=== PATIENT | female | born 1980 | race Caucasian/White ===

== ENCOUNTER 2017-07-13 18:12 | Observation (INO) | payer OTHER ==
[2017-07-13] MEDS ORDERED: MORPHINE SULFATE 10 MG/ML SYRINGE IM STA (18:30)
[2017-07-13] MEDS ORDERED: AMOXIC-POT CLAV 875MG STARTER 2 EACH TABLET PO STA (18:31)
--- NOTE | 2017-07-13 18:48 | ED ---
Animal Bite HPI - General Chief Complaint: Animal Bite Stated Complaint: Dog Bite Time Seen by Provider: 07/13/17 18:14 Source: patient, RN notes reviewed, old records reviewed Mode of arrival: EMS Limitations: no limitations - History of Present Illness Initial Comments: This is a 36-year-old female presents emergency Department chief complaint of a dog bite over her left calf. Patient reports that she got in between HER-[employer] dogs when they were fighting. They are pitbull mixes. Patient reports that she is unable exactly which dog bit her. Patient reports that she has a large laceration over her low left medial calf. Patient reports that she had a tetanus shot within the last 5 years. She states that the dogs are up-to-date on vaccinations. Patient reports that she has full range of motion of her toes and ankle.Patient denies any recent fever, chills, shortness of breath, chest pain, back pain, abdominal pain, nausea vomiting, numbness or tingling, dysuria or hematuria, constipation or diarrhea, headaches or visual changes, or any other current symptoms - Related Data Home Medications Medication Instructions Recorded Confirmed Albuterol Inhaler [Ventolin Hfa 1 - 2 puff INHALATION RT-Q6H PRN 07/13/17 Inhaler] Albuterol Nebulized [Ventolin 2.5 mg INHALATION RT-QID PRN 07/13/17 07/13/17 Nebulized] Amoxicillin/Potassium Clav 1 tab PO Q12HR 07/13/17 07/13/17 [Augmentin 875-125 Tablet] Azithromycin [Zithromax Z-pack] See Taper PO DIRECTED 07/13/17 07/13/17 Beclomethasone Dip 80 Mcg/Puff 2 puff INHALATION RT-BID 07/13/17 07/13/17 [Qvar 80 mcg] EPINEPHrine (Auto Inject) [Epipen] 0.3 mg IM ONCE PRN 07/13/17 07/13/17 FLUoxetine HCL [PROzac] 20 mg PO DAILY 07/13/17 07/13/17 Tiotropium [place] [Spiriva 2 spray INHALATION RT-DAILY 07/13/17 07/13/17 Respimat] methylPREDNISolone [Medrol Dose See Taper PO DIRECTED 07/13/17 07/13/17 Pack] Allergies Allergy/AdvReac Type Severity Reaction Status Date / Time bee venom protein (honey bee) Allergy Anaphylaxis Verified 07/13/17 19:00 metronidazole [From Flagyl] Allergy Rash/Hives Verified 07/13/17 19:00 Review of Systems ROS Statement: Those systems with pertinent positive or pertinent negative responses have been documented in the HPI. ROS Other: All systems not noted in ROS Statement are negative. Past Medical History Past Medical History: Asthma History of Any Multi-Drug Resistant Organisms: None Reported Past Surgical History: Hysterectomy Past Psychological History: Depression Smoking Status: Never smoker Past Alcohol Use History: None Reported Past Drug Use History: None Reported General Exam - General Exam Comments Initial Comments: 28-year-old female, patient appears anxious. Limitations: no limitations General appearance: alert, in no apparent distress Head exam: Present: atraumatic, normocephalic, normal inspection Eye exam: Present: normal appearance, PERRL, EOMI. Absent: scleral icterus, conjunctival injection, periorbital swelling ENT exam: Present: normal exam, mucous membranes moist Neck exam: Present: normal inspection. Absent: tenderness, meningismus, lymphadenopathy Respiratory exam: Present: normal lung sounds bilaterally. Absent: respiratory distress, wheezes, rales, rhonchi, stridor Cardiovascular Exam: Present: regular rate, normal rhythm, normal heart sounds. Absent: systolic murmur, diastolic murmur, rubs, gallop, clicks GI/Abdominal exam: Present: soft, normal bowel sounds. Absent: distended, tenderness, guarding, rebound, rigid Extremities exam: Present: normal inspection, full ROM, normal capillary refill. Absent: tenderness, pedal edema, joint swelling, calf tenderness Left Upper Leg exam: Present: normal inspection, full ROM Knee exam: Present: normal inspection, full ROM Lower Leg exam: Present: tenderness, laceration (Patient has a 5" x 3" laceration, and missing tissue over the left medial calf. There is also a 1 cm puncture wound within the upper part of the laceration.). Absent: normal inspection Ankle exam: Present: normal inspection, full ROM Foot/Toe exam: Present: normal inspection, full ROM Neurovascular tendon exam: Present: no vascular compromise Back exam: Present: normal inspection Neurological exam: Present: alert, oriented X3, CN II-XII intact Psychiatric exam: Present: normal affect, normal mood Skin exam: Present: warm Course Vital Signs 07/13/17 18:16 Temperature 98.3 F Pulse Rate 111 H Respiratory 16 Rate Blood Pressure 137/71 O2 Sat by Pulse 97 Oximetry Procedures - Laceration Laceration #1 Indication: laceration Size (cm): 12 Description: flap Anesthetic Used: lidocaine 1% Anesthesia Technique: local infiltration Amount (mls): 10 Pre-repair: wound explored, irrigated extensively Type of Sutures: nylon Size of Sutures: 4-0 Number of Sutures: 9 Technique: simple, interrupted Patient Tolerated Procedure: well, no complications Medical Decision Making - Medical Decision Making -year-old female presents emergency Department with left lower leg laceration. Patient's laceration measures proximally 5" x 3". There is areas of skin that are missing. Discussed this with Dr. Hall. We discussed this with Dr. Ballesteros in the surgeon general production manager. She recommends to bring the remaining skin together and admit the patient for IV antibiotics and she will evaluate her tomorrow morning. Patient agrees to the admission. Patient started on IV Unasyn and given pain medication and normal saline. CBC and CMP obtained. Patient's laceration was partially closed with 9 sutures. There isn't evidence of gaping wound over the central aspect of the wound. Patient's wound was covered with nonstick dressing and dry dressing over top. - Lab Data Result diagrams: 07/13/17 19:37 07/13/17 19:37 Lab Results 07/13/17 07/13/17 Range/Units 19:37 19:37 WBC 11.7 H (3.8-10.6) k/uL RBC 4.59 (3.80-5.40) m/uL Hgb 13.8 (11.4-16.0) gm/dL Hct 41.0 (34.0-46.0) % MCV 89.3 (80.0-100.0) fL MCH 30.1 (25.0-35.0) pg MCHC 33.7 (31.0-37.0) g/dL RDW 13.8 (11.5-15.5) % Plt Count 434 (150-450) k/uL Neutrophils % 77 % Lymphocytes % 16 % Monocytes % 4 % Eosinophils % 1 % Basophils % 1 % Neutrophils # 9.0 H (1.3-7.7) k/uL Lymphocytes # 1.9 (1.0-4.8) k/uL Monocytes # 0.5 (0-1.0) k/uL Eosinophils # 0.2 (0-0.7) k/uL Basophils # 0.1 (0-0.2) k/uL Sodium 139 (137-145) mmol/L Potassium 3.9 (3.5-5.1) mmol/L Chloride 105 (98-107) mmol/L Carbon Dioxide 22 (22-30) mmol/L Anion Gap 12 mmol/L BUN 10 (7-17) mg/dL Creatinine 0.90 (0.52-1.04) mg/dL Est GFR (MDRD) Af Amer >60 (>60 ml/min/1.73 sqM) Est GFR (MDRD) Non-Af >60 (>60 ml/min/1.73 sqM) Glucose 110 H (74-99) mg/dL Calcium 10.1 (8.4-10.2) mg/dL Total Bilirubin 0.5 (0.2-1.3) mg/dL AST 27 (14-36) U/L ALT 48 (9-52) U/L Alkaline Phosphatase 72 (38-126) U/L Total Protein 7.8 (6.3-8.2) g/dL Albumin 4.4 (3.5-5.0) g/dL Disposition Clinical Impression: Dog bite, Leg laceration Disposition: ADMITTED IP TO THIS HOSP Condition: Stable Instructions: Animal Bite (ED) Referrals: Jovita Clifton MD [Primary Care Provider] - 1-2 days Time of Disposition: 19:40
--- NOTE | 2017-07-13 19:02 | XR ---
EXAMINATION TYPE: XR tibia fibula LT DATE OF EXAM: 07/13/2017 COMPARISON: NONE HISTORY: Laceration TECHNIQUE: 4 view FINDINGS: I see no fracture nor dislocation. There are moderate sized plantar and Achilles calcaneal spurs. There is soft tissue deformity on the medial aspect of the knee. IMPRESSION: Soft tissue laceration deformity. No fracture. No sign of a foreign body.
[2017-07-13] MEDS ORDERED: SODIUM CHLORIDE 0.9% 1,000 ML IV ONE (19:18)
[2017-07-13] MEDS ORDERED: AMPICILLIN-SULBACTAM 3 GM in SODIUM CHLORIDE 0.9% 100 ML IVPB STA (19:23)
[2017-07-13] MEDS ORDERED: KETOROLAC 30 MG/ML 1 ML VIAL IVP PRN (19:32)
[2017-07-13] MEDS ORDERED: TEMAZEPAM 15 MG CAP PO PRN (19:32)
[2017-07-13] MEDS ORDERED: BISACODYL 5 MG TABLET.DR PO PRN (19:32)
[2017-07-13] MEDS ORDERED: LORazepam 2 MG/ML INJ IV PRN (19:32)
[2017-07-13] MEDS ORDERED: IBUPROFEN 400 MG TAB PO PRN (19:32)
[2017-07-13] MEDS ORDERED: ACETAMINOPHEN TAB 325 MG TAB PO PRN (19:32)
[2017-07-13] MEDS ORDERED: NALOXONE 0.4 MG/ML 1 ML VIAL IV PRN (19:32)
[2017-07-13 19:45] LABS: Basophils # (A) 0.1 k/uL (0-0.2); Basophils % (A) 1 %; CH 31.9; CHCM 35.9; Eosinophils # (A) 0.2 k/uL (0-0.7); Eosinophils % (A) 1 %; HDW 2.73; HGB 13.8 gm/dL (11.4-16.0); Luc # (Auto) 0.08; Luc % (Auto) 1; Lymphocytes # (A) 1.9 k/uL (1.0-4.8); Lymphocytes % (A) 16 %; MCH 30.1 pg (25.0-35.0); MCHC 33.7 g/dL (31.0-37.0); MCV 89.3 fL (80.0-100.0); Mean Platelet Volume 6.9; Monocytes # (A) 0.5 k/uL (0-1.0); Monocytes % (A) 4 %; Neutrophils % (A) 77 %; RBC 4.59 m/uL (3.80-5.40); RDW 13.8 % (11.5-15.5); WBC 11.7 k/uL (3.8-10.6); WBC (Perox) 11.56
[2017-07-13] MEDS: SODIUM CHLORIDE 0.9% 1,000 ML IV SCH ×2 (19:45→21:58)
[2017-07-13 20:03] LABS: ALT 48 U/L (9-52); AST 27 U/L (14-36); Alkaline Phosphatase 72 U/L (38-126); Anion Gap 12 mmol/L; Blood Urea Nitrogen 10 mg/dL (7-17); Calcium 10.1 mg/dL (8.4-10.2); Carbon Dioxide 22 mmol/L (22-30); Chloride 105 mmol/L (98-107); Glucose 110 mg/dL (74-99); Non-African American GFR(MDRD) >60 (>60 ml/min/1.73 sqM); Potassium 3.9 mmol/L (3.5-5.1); Sodium 139 mmol/L (137-145); Total Bilirubin 0.5 mg/dL (0.2-1.3); Total Protein 7.8 g/dL (6.3-8.2)
[2017-07-13 21:11] VITALS: RESP 18
[2017-07-13] MEDS: ONDANSETRON 4 MG/2 ML VIAL IVP PRN (21:54)
[2017-07-13] MEDS: MORPHINE SULFATE 4 MG/ML SYRINGE IV PRN (23:32)
[2017-07-14] MEDS: MORPHINE SULFATE 4 MG/ML SYRINGE IV PRN ×2 (05:34→09:31)
[2017-07-14] MEDS: AMPICILLIN-SULBACTAM 3 GM in SODIUM CHLORIDE 0.9% 100 ML IVPB SCH ×2 (05:48→12:07)
[2017-07-14 07:45] VITALS: BP 107/55; PULSE 71; TEMP 97.8
[2017-07-14] MEDS ORDERED: PANTOPRAZOLE 40 MG/10 ML VIAL IV SCH (09:00)
--- NOTE | 2017-07-14 09:42 | P.GSHP ---
History of Present Illness H&P Date: 07/14/17 Chief Complaint: Dog bite The patient is a 36-year-old female who sustained a dog bite to the left calf. She will got in between her dog who were fighting. One of the dogs bit her. - Review of Systems All systems: negative Past Medical History Past Medical History: Asthma, GERD/Reflux Additional Past Medical History / Comment(s): BRONCHITIS, DEPRESSION, "BOARDERLINE DIABETEIC NO MEDS NO BS CHECKS JUST WATCHES DIET.MIGRAINES History of Any Multi-Drug Resistant Organisms: None Reported Past Surgical History: Hysterectomy, Tubal Ligation Additional Past Surgical History / Comment(s): LT WRIST PLATE/PINS ,PARTIAL HYSTERECTOMY Past Anesthesia/Blood Transfusion Reactions: Motion Sickness Smoking Status: Former smoker - Past Family History Father Family Medical History: Diabetes Mellitus Mother Family Medical History: Diabetes Mellitus Medications and Allergies Home Medications Medication Instructions Recorded Confirmed Type Albuterol Inhaler [Ventolin Hfa 1 - 2 puff INHALATION RT-Q6H PRN 07/13/17 History Inhaler] Albuterol Nebulized [Ventolin 2.5 mg INHALATION RT-QID PRN 07/13/17 07/13/17 History Nebulized] Amoxicillin/Potassium Clav 1 tab PO Q12HR 07/13/17 07/13/17 History [Augmentin 875-125 Tablet] Azithromycin [Zithromax Z-pack] See Taper PO DIRECTED 07/13/17 07/13/17 History Beclomethasone Dip 80 Mcg/Puff 2 puff INHALATION RT-BID 07/13/17 07/13/17 History [Qvar 80 mcg] EPINEPHrine (Auto Inject) [Epipen] 0.3 mg IM ONCE PRN 07/13/17 07/13/17 History FLUoxetine HCL [PROzac] 20 mg PO DAILY 07/13/17 07/13/17 History Tiotropium [place] [Spiriva 2 spray INHALATION RT-DAILY 07/13/17 07/13/17 History Respimat] methylPREDNISolone [Medrol Dose See Taper PO DIRECTED 07/13/17 07/13/17 History Pack] Allergies Allergy/AdvReac Type Severity Reaction Status Date / Time bee venom protein (honey bee) Allergy Anaphylaxis Verified 07/13/17 19:00 metronidazole [From Flagyl] Allergy Rash/Hives Verified 07/13/17 19:00 Surgical - Exam Osteopathic Statement: *. No significant issues noted on an osteopathic structural exam other than those noted in the History and Physical/Consult. Vital Signs Temp Pulse Resp BP Pulse Ox 98.3 F 111 H 16 137/71 97 07/13/17 18:16 07/13/17 18:16 07/13/17 18:16 07/13/17 18:16 07/13/17 18:16 - General well developed, well nourished, no distress - Eyes normal ocular movement - ENT no hearing loss - Neck trachea midline - Respiratory normal respiratory effort - Integumentary 7 x 12 cm area where the skin has avulsed from the underlying fatty tissue. There is some skin loss associated with it.. - Psychiatric oriented to time, oriented to person, oriented to place, speech is normal, memory intact Results - Labs 07/13/17 19:37 07/13/17 19:37 Abnormal Lab Results - Last 24 Hours (Table) 07/13/17 07/13/17 Range/Units 19:37 19:37 WBC 11.7 H (3.8-10.6) k/uL Neutrophils # 9.0 H (1.3-7.7) k/uL Glucose 110 H (74-99) mg/dL Diabetes panel 07/13/17 Range/Units 19:37 Sodium 139 (137-145) mmol/L Potassium 3.9 (3.5-5.1) mmol/L Chloride 105 (98-107) mmol/L Carbon Dioxide 22 (22-30) mmol/L BUN 10 (7-17) mg/dL Creatinine 0.90 (0.52-1.04) mg/dL Glucose 110 H (74-99) mg/dL Calcium 10.1 (8.4-10.2) mg/dL AST 27 (14-36) U/L ALT 48 (9-52) U/L Alkaline Phosphatase 72 (38-126) U/L Total Protein 7.8 (6.3-8.2) g/dL Albumin 4.4 (3.5-5.0) g/dL Calcium panel 07/13/17 Range/Units 19:37 Calcium 10.1 (8.4-10.2) mg/dL Albumin 4.4 (3.5-5.0) g/dL Pituitary panel 07/13/17 Range/Units 19:37 Sodium 139 (137-145) mmol/L Potassium 3.9 (3.5-5.1) mmol/L Chloride 105 (98-107) mmol/L Carbon Dioxide 22 (22-30) mmol/L BUN 10 (7-17) mg/dL Creatinine 0.90 (0.52-1.04) mg/dL Glucose 110 H (74-99) mg/dL Calcium 10.1 (8.4-10.2) mg/dL Adrenal panel 07/13/17 Range/Units 19:37 Sodium 139 (137-145) mmol/L Potassium 3.9 (3.5-5.1) mmol/L Chloride 105 (98-107) mmol/L Carbon Dioxide 22 (22-30) mmol/L BUN 10 (7-17) mg/dL Creatinine 0.90 (0.52-1.04) mg/dL Glucose 110 H (74-99) mg/dL Calcium 10.1 (8.4-10.2) mg/dL Total Bilirubin 0.5 (0.2-1.3) mg/dL AST 27 (14-36) U/L ALT 48 (9-52) U/L Alkaline Phosphatase 72 (38-126) U/L Total Protein 7.8 (6.3-8.2) g/dL Albumin 4.4 (3.5-5.0) g/dL Assessment and Plan (1) Skin avulsion Status: Acute (2) Dog bite Status: Acute (3) Leg laceration Status: Acute (4) Asthma Status: Acute Plan: The patient has been admitted overnight for IV antibiotics. Will arrange home wound care. We will not know the viability of the skin for 1-2 weeks. This may require a skin graft in the future.
[2017-07-14] MEDS ORDERED: NEOMYCIN-BACITRACIN-POLY OINT 14 GM TUBE TOPICAL SCH (09:45)
[2017-07-14] MEDS: ONDANSETRON 4 MG/2 ML VIAL IVP PRN (11:43)
--- NOTE | 2017-07-14 13:28 | P.PN ---
Progress Note - Text The dressing was changed. There is about a 5 x 5 cm area of skin loss. The superior and inferior portion of the wound has sutures present. The skin is questionably viable posteriorly. Some areas show blanching others are dusky. No evidence of cellulitis. Once home health care is arranged, we'll discharge her home with oral antibiotics and pain medications. She doesn't have the transportation to go into wound care clinic. I'll see her in the office in 10-14 days. This wound will likely need a skin graft at some point.
[2017-07-15] MEDS ORDERED: PANTOPRAZOLE 40 MG TABLET PO SCH (07:30)
== END 2017-07-14 17:15 | disposition home health service (06) ==
LOC: EC 18:12 → 5MS5E 19:40 → INTOOBSV 19:40
PROVIDERS: ADMIT Surgery; ATTEND Surgery
DX: S81.852A Open bite, left lower leg, initial encounter (principal); W54.0XXA Bitten by dog, initial encounter; J45.909 Unspecified asthma, uncomplicated; F32.9 Major depressive disorder, single episode, unspecified; Z79.899 Other long term (current) drug therapy; Z79.51 Long term (current) use of inhaled steroids; Z91.030 Bee allergy status; Z88.1 Allergy status to other antibiotic agents; Z83.3 Family history of diabetes mellitus; Z87.891 Personal history of nicotine dependence
CPT/HCPCS: 12004; 96365; 96372; 96376; 96366; 96375 ×2; 99285; 36415; 80053; 85025; 73590; G0378 ×2; J2270 ×3; J2405 ×2; J0295 ×2; C9113

== ENCOUNTER 2017-09-06 11:56 | Day surgery (SDC) | payer OTHER ==
[2017-09-05 08:26] VITALS: BMI 32.5
[~2017-09-06 11:56] MED LIST: DEXAMETHASONE SOD PHOSPHATE 10 MG/ML 1 ML VIAL IV ONE; HYDROmorphone 0.5 MG/0.5 ML SYRINGE IVP PRN; LACTATED RINGERS 1,000 ML IV SCH; MIDAZOLAM 2 MG/2 ML VIAL IV PRN; ONDANSETRON 4 MG/2 ML VIAL IVP ONE; SCOPOLAMINE 1.5MG/72HR PATCH TRANSDERM ONE; ceFAZolin IN SWFI 2 GM/20 ML SYRINGE IVP ONE
[2017-09-06 12:24] VITALS: BP 124/67; PULSE 77; RESP 18; TEMP 98.2
[2017-09-06] MEDS ORDERED: LIDOCAINE 1% 20 ML VIAL (10MG/ML) FOR IV START INTRADERMA ONE (12:35)
--- NOTE | 2017-09-06 12:55 | P.PN ---
Progress Note - Text Progress Note Date: 09/06/17 The patient was seen in the preop holding area. The wound is manjinder nicely. Its much smaller than when seen in the office. About 1 x 3.5 cm with good granulation tissue. There is some surrounding erythema about 1-1/2 inches which appears that it could be a reaction to the antibiotic ointment. No evidence of cellulitis. Assessment is status post degloving injury to the left lower extremity, topical reaction to medication Plan: Wound is improving nicely. We'll have her stop the current antibiotic ointment switch to formula. At this point I don't see a need to do further debridement. I'll recheck her in the office in several weeks.
== END 2017-09-06 13:12 | disposition home or self-care (01) ==
LOC: OR 11:56
PROVIDERS: ATTEND Surgery
DX: S81.852A Open bite, left lower leg, initial encounter (principal); W54.0XXA Bitten by dog, initial encounter; T49.0X5A Adverse effect of local antifungal, anti-infective and anti-inflammatory drugs, initial encounter; Z53.8 Procedure and treatment not carried out for other reasons; J45.909 Unspecified asthma, uncomplicated; K21.9 Gastro-esophageal reflux disease without esophagitis; F32.9 Major depressive disorder, single episode, unspecified; Z79.2 Long term (current) use of antibiotics; Z79.51 Long term (current) use of inhaled steroids; Z79.899 Other long term (current) drug therapy; Z88.8 Allergy status to other drugs, medicaments and biological substances; Z87.891 Personal history of nicotine dependence
CPT/HCPCS: 97597; J1100; J2405